=== PATIENT | female | born 1950 | race African-American/Black ===

== ENCOUNTER 2018-11-06 06:03 | Inpatient (IN) ==
[2018-11-05 09:18] LABS: Basophils % 0.5 % (0.0-0.8); Eosinophils % 0.4 % (0.00-10.9); Hemoglobin 10.7 GM/DL (12.0-16.0); Immature Granulocytes % 0.8 %; Immature Granulocytes Absolute 0.06 #; Lymphocytes # 0.7 10*3/uL (1.4-4.0); Lymphocytes % 8.9 % (21.3-54.2); Mean Corpuscular HGB Conc 33.4 GM/DL (32-36); Mean Corpuscular Hemoglobin 30 PG (27-34); Mean Corpuscular Volume 90.9 FL (87-102); Mean Platelet Volume 9.5 FL (9.6-12.0); Monocytes # 0.6 10*3/uL (0.11-0.8); Monocytes % 7.8 % (1.7-12.7); Neutrophils # 6.3 10*3/uL (1.4-7.4); Neutrophils % 81.6 % (38.7-73.9); Platelet Count 313 T/CUMM (130-400); Red Blood Count 3.52 MC/CUMM (3.8-5.5); Red Cell Distribution Width 15.3 % (9.3-17.3); White Blood Count 7.7 T/CUMM (4-12)
[2018-11-05 09:35] LABS: Alanine Aminotransferase 23 U/L (13-56); Albumin 3.7 G/DL (3.4-5.0); Alkaline Phosphatase 92 U/L (45-117); Aspartate Amino Transferase 21 U/L (0-37); Bilirubin,Total < 0.39 MG/DL (0.2-1.0); Blood Urea Nitrogen 11 MG/DL (7-18); Calcium 8.8 MG/DL (8.5-10.1); Glucose 89 MG/DL (74-106); Osmolality,Calculated 274.5 MOS/KG (273-304); Potassium 3.7 MMOL/L (3.5-5.1); Sodium 139 MMOL/L (136-145); Total Protein 7.5 G/DL (6.4-8.3)
[~2018-11-06 06:03] MED LIST: ALVIMOPAN 12 MG CAPSULE PO ONE; DIAZEPAM 5 MG TABLET PO ONE; ERTAPENEM 1,000 MG in SODIUM CHLORIDE 0.9% 100 ML IV ONE; FAMOTIDINE 20 MG TABLET PO ONE
[2018-11-06] MEDS ORDERED: DIAZEPAM 5 MG TABLET ONE (06:32)
[2018-11-06] MEDS ORDERED: ERTAPENEM 1,000 MG VIAL ONE (06:33)
[2018-11-06] MEDS ORDERED: FAMOTIDINE 20 MG TABLET ONE (06:33)
[2018-11-06] MEDS ORDERED: ALVIMOPAN 12 MG CAPSULE ONE (06:33)
[2018-11-06] MEDS ORDERED: TISSUE ADHESIVE 1 EACH APPLICATOR TOP ONE (06:34)
[2018-11-06] MEDS ORDERED: LIDOCAINE 1%/EPI INJ 20 ML VIAL ONE (06:34)
[2018-11-06] MEDS ORDERED: ISOSULFAN BLUE 5 ML VIAL SUBCUT ONE ×2 (06:54→10:24)
[2018-11-06] MEDS: LACTATED RINGERS 1,000 ML IV SCH ×3 (07:00→13:05)
[2018-11-06] MEDS ORDERED: MORPHINE 10 MG/10 ML VIAL ONE (07:06)
[2018-11-06] MEDS ORDERED: BUPIVACAINE SPINAL 0.75% 2 ML AMP SPINAL ONE (07:06)
[2018-11-06] MEDS ORDERED: INDOCYANINE GREEN 25 MG VIAL IV ONE (09:43)
[2018-11-06 12:20] LABS: Apearance,Urine CLEAR (Clear); Bacteria,Urine Occasional /HPF (Few); Bilirubin,Urine Negative (Negative); Blood, Urine Negative (Negative); Glucose,Urine (UA) Negative (Negative); Hyaline Casts,Urine 3 /LPF (0-3); Ketones,Urine Negative (Negative); Nitrite,Urine Negative (Negative); Protein,Urine Negative; RBC,Urine 1 /HPF (0-4); Urine Color Yellow (Yellow); Urine Specific Gravity 1.021 (1.001-1.035); Urine Urobilinogen < 2.0 EU/DL (0.2-1.0); WBC,Urine <1 /HPF (0-6)
[2018-11-06] MEDS ORDERED: GLYCOPYRROLATE 0.4 MG/2 ML VIAL ONE (12:20)
[2018-11-06] MEDS ORDERED: MIDAZOLAM 2 MG/2 ML VIAL ONE (12:20)
[2018-11-06] MEDS ORDERED: PROPOFOL 200 MG/20 ML VIAL IV ONE (12:20)
[2018-11-06] MEDS ORDERED: SEVOFLURANE 1 UNIT/15 MINUTE INH ONE (12:20)
[2018-11-06] MEDS ORDERED: ONDANSETRON 4 MG/2 ML VIAL ONE (12:20)
[2018-11-06] MEDS ORDERED: fentaNYL 100 MCG/2 ML VIAL ONE (12:20)
[2018-11-06] MEDS ORDERED: NEOSTIGMINE 10 MG/10 ML VIAL ONE (12:21)
[2018-11-06] MEDS ORDERED: ROCURONIUM 100 MG/10 ML VIAL IV ONE (12:21)
[2018-11-06] MEDS ORDERED: ACETAMINOPHEN 1,000 MG/100 ML VIAL IV ONE (12:21)
[2018-11-06] MEDS ORDERED: PHENYLEPHRINE 1 MG/10 ML SYRINGE IV ONE (12:21)
[2018-11-06] MEDS ORDERED: LACTATED RINGERS 1,000 ML IV ONE (12:21)
[2018-11-06] MEDS ORDERED: ONDANSETRON 4 MG/2 ML VIAL IV PRN (13:08)
[2018-11-06] MEDS ORDERED: KETOROLAC 10 MG TABLET PO PRN (13:08)
[2018-11-06 14:01] LABS: Hematocrit 27.5 VOL% (35.7-47.0); Hemoglobin 9.2 GM/DL (12.0-16.0)
[2018-11-06] MEDS: DEXTROSE 5% LACTATED RINGERS 1,000 ML IV SCH ×2 (15:03→23:44)
[2018-11-06] MEDS: cefOXitin 2,000 MG in SYRINGE 1 EACH IV SCH ×2 (17:15→23:42)
[2018-11-06] MEDS: ALVIMOPAN 12 MG CAPSULE PO SCH (20:41)
[2018-11-06 21:15] LABS: Hematocrit 26.5 VOL% (35.7-47.0); Hemoglobin 8.9 GM/DL (12.0-16.0)
[2018-11-07] MEDS: cefOXitin 2,000 MG in SYRINGE 1 EACH IV SCH (04:00)
[2018-11-07 05:09] LABS: Basophils % 0.2 % (0.0-0.8); Eosinophils # 0.1 10*3/uL (0.0-0.87); Eosinophils % 1.1 % (0.00-10.9); Hematocrit 24.9 VOL% (35.7-47.0); Hemoglobin 8.4 GM/DL (12.0-16.0); Immature Granulocytes % 0.5 %; Immature Granulocytes Absolute 0.03 #; Lymphocytes # 0.8 10*3/uL (1.4-4.0); Lymphocytes % 14.8 % (21.3-54.2); Mean Corpuscular HGB Conc 33.7 GM/DL (32-36); Mean Corpuscular Hemoglobin 30 PG (27-34); Mean Corpuscular Volume 89.6 FL (87-102); Monocytes # 0.6 10*3/uL (0.11-0.8); Monocytes % 11.3 % (1.7-12.7); Neutrophils % 72.1 % (38.7-73.9); Platelet Count 254 T/CUMM (130-400); Red Blood Count 2.78 MC/CUMM (3.8-5.5); Red Cell Distribution Width 15.1 % (9.3-17.3); White Blood Count 5.6 T/CUMM (4-12)
[2018-11-07 05:34] LABS: Calcium 7.9 MG/DL (8.5-10.1); Osmolality,Calculated 278.3 MOS/KG (273-304); Potassium 3.1 MMOL/L (3.5-5.1)
[2018-11-07] MEDS: DEXTROSE 5% LACTATED RINGERS 1,000 ML IV SCH ×2 (06:12→16:05)
[2018-11-07] MEDS ORDERED: PHENOL 1.4% THROAT SPRAY 177 ML BOTTLE PO PRN (08:32)
[2018-11-07 09:00] LABS: Hematocrit 24.8 VOL% (35.7-47.0); Hemoglobin 8.3 GM/DL (12.0-16.0)
[2018-11-07] MEDS: ALVIMOPAN 12 MG CAPSULE PO SCH ×2 (10:01→20:49)
[2018-11-07] MEDS: PANTOPRAZOLE 40 MG TABLET PO SCH (10:01)
[2018-11-07] MEDS: ENOXAPARIN 40 MG/0.4 ML SYRINGE SUBCUT SCH (10:02)
[2018-11-07] MEDS: POTASSIUM CHLORIDE RIDER 10 MEQ in PREMIX 1 EACH IV PRN ×4 (16:11→20:45)
[2018-11-07 17:19] LABS: Hematocrit 24.7 VOL% (35.7-47.0); Hemoglobin 8.4 GM/DL (12.0-16.0)
[2018-11-07] MEDS: LACTATED RINGERS 1,000 ML IV SCH (19:00)
[2018-11-08] MEDS: DEXTROSE 5% LACTATED RINGERS 1,000 ML IV SCH ×3 (00:47→13:30)
[2018-11-08 00:59] LABS: Hematocrit 25.4 VOL% (35.7-47.0); Hemoglobin 8.7 GM/DL (12.0-16.0)
[2018-11-08 04:53] LABS: Basophils % 0.3 % (0.0-0.8); Eosinophils # 0.1 10*3/uL (0.0-0.87); Eosinophils % 1.1 % (0.00-10.9); Hematocrit 27.2 VOL% (35.7-47.0); Hemoglobin 9.2 GM/DL (12.0-16.0); Immature Granulocytes % 0.4 %; Immature Granulocytes Absolute 0.03 #; Lymphocytes # 0.8 10*3/uL (1.4-4.0); Lymphocytes % 10.5 % (21.3-54.2); Mean Corpuscular HGB Conc 33.8 GM/DL (32-36); Mean Corpuscular Hemoglobin 30 PG (27-34); Mean Corpuscular Volume 89.5 FL (87-102); Mean Platelet Volume 10.5 FL (9.6-12.0); Monocytes # 0.6 10*3/uL (0.11-0.8); Monocytes % 8.8 % (1.7-12.7); Neutrophils # 5.7 10*3/uL (1.4-7.4); Neutrophils % 78.9 % (38.7-73.9); Platelet Count 268 T/CUMM (130-400); Red Blood Count 3.04 MC/CUMM (3.8-5.5); Red Cell Distribution Width 15.4 % (9.3-17.3); White Blood Count 7.2 T/CUMM (4-12)
[2018-11-08 05:03] LABS: Calcium 8.4 MG/DL (8.5-10.1); Potassium 3.5 MMOL/L (3.5-5.1)
[2018-11-08 08:08] LABS: Hematocrit 25.8 VOL% (35.7-47.0); Hemoglobin 8.8 GM/DL (12.0-16.0)
[2018-11-08] MEDS: HYDROmorphone 2 MG/1 ML VIAL IV PRN ×3 (09:03→23:39)
[2018-11-08] MEDS: ENOXAPARIN 40 MG/0.4 ML SYRINGE SUBCUT SCH (09:04)
[2018-11-08] MEDS: PANTOPRAZOLE 40 MG TABLET PO SCH (09:04)
[2018-11-08] MEDS: ALVIMOPAN 12 MG CAPSULE PO SCH ×2 (09:04→21:01)
[2018-11-08] MEDS: LACTATED RINGERS 1,000 ML IV SCH (21:33)
[2018-11-09 05:49] LABS: Basophils % 0.2 % (0.0-0.8); Eosinophils # 0.1 10*3/uL (0.0-0.87); Eosinophils % 1.9 % (0.00-10.9); Hematocrit 28.1 VOL% (35.7-47.0); Hemoglobin 9.2 GM/DL (12.0-16.0); Immature Granulocytes % 0.5 %; Immature Granulocytes Absolute 0.03 #; Lymphocytes # 0.9 10*3/uL (1.4-4.0); Lymphocytes % 16.4 % (21.3-54.2); Mean Corpuscular HGB Conc 32.7 GM/DL (32-36); Mean Corpuscular Hemoglobin 29 PG (27-34); Mean Corpuscular Volume 89.8 FL (87-102); Mean Platelet Volume 9.8 FL (9.6-12.0); Monocytes # 0.5 10*3/uL (0.11-0.8); Monocytes % 8.5 % (1.7-12.7); Neutrophils # 4.1 10*3/uL (1.4-7.4); Neutrophils % 72.5 % (38.7-73.9); Platelet Count 264 T/CUMM (130-400); Red Blood Count 3.13 MC/CUMM (3.8-5.5); Red Cell Distribution Width 15.2 % (9.3-17.3); White Blood Count 5.7 T/CUMM (4-12)
[2018-11-09] MEDS: LACTATED RINGERS 1,000 ML IV SCH (07:16)
[2018-11-09] MEDS: HYDROmorphone 2 MG/1 ML VIAL IV PRN ×2 (09:33→22:10)
[2018-11-09] MEDS: ALVIMOPAN 12 MG CAPSULE PO SCH ×2 (09:36→21:35)
[2018-11-09] MEDS: PANTOPRAZOLE 40 MG TABLET PO SCH (09:37)
[2018-11-09] MEDS: ENOXAPARIN 40 MG/0.4 ML SYRINGE SUBCUT SCH (09:37)
[2018-11-09] MEDS: DEXTROSE 5% LACTATED RINGERS 1,000 ML IV SCH (10:13)
[2018-11-10] MEDS: LACTATED RINGERS 1,000 ML IV SCH (09:16)
[2018-11-10] MEDS: DEXTROSE 5% LACTATED RINGERS 1,000 ML IV SCH (09:16)
[2018-11-10] MEDS: ENOXAPARIN 40 MG/0.4 ML SYRINGE SUBCUT SCH (09:17)
[2018-11-10] MEDS: ALVIMOPAN 12 MG CAPSULE PO SCH (09:17)
[2018-11-10] MEDS: PANTOPRAZOLE 40 MG TABLET PO SCH (09:17)
[2018-11-10 12:11] VITALS: BP 141/77
== END 2018-11-10 12:54 | disposition home or self-care (01) | DRG 330 ==
LOC: N.OR 06:03 → N.SDSINP 06:04 → N.3E 13:08
PROVIDERS: ADMIT Surgery; ATTEND Surgery

== ENCOUNTER 2018-12-21 18:33 | Inpatient (IN) ==
[2018-12-21] MEDS ORDERED: SODIUM CHLORIDE 0.9% 1,000 ML IV STA (18:58)
[2018-12-21 19:25] LABS: Basophils % 0.1 % (0.0-0.8); Hematocrit 33.3 VOL% (35.7-47.0); Hemoglobin 11.2 GM/DL (12.0-16.0); Immature Granulocytes % 0.6 %; Immature Granulocytes Absolute 0.09 #; Lymphocytes # 0.5 10*3/uL (1.4-4.0); Lymphocytes % 3.2 % (21.3-54.2); Mean Corpuscular HGB Conc 33.6 GM/DL (32-36); Mean Corpuscular Volume 85.4 FL (87-102); Mean Platelet Volume 9.6 FL (9.6-12.0); Monocytes % 10.4 % (1.7-12.7); NRBC # 0.02 10*3/uL; Neutrophils % 85.7 % (38.7-73.9); Platelet Count 359 T/CUMM (130-400); Red Cell Distribution Width 18.3 % (9.3-17.3)
[2018-12-21 19:31] LABS: Apearance,Urine CLOUDY (Clear); Bacteria,Urine Few /HPF (Few); Bilirubin,Urine Negative (Negative); Blood, Urine Large mg/dL (Negative); Glucose,Urine (UA) Negative (Negative); Ketones,Urine 20 mg/dL (Negative); Mucus,Urine Occasional /LPF (Occasional); Nitrite,Urine Negative (Negative); Protein,Urine 30 MG/DL; Squamous Epithelial Cell,Urine Occasional /HPF (0-10); Urine Color Yellow (Yellow); Urine Specific Gravity 1.013 (1.001-1.035); Urine Urobilinogen < 2.0 EU/DL (0.2-1.0); WBC,Urine 3 /HPF (0-6)
[2018-12-21 19:33] LABS: INR 0.9; PT Patient Result 10.3 SECS
[2018-12-21 19:43] LABS: Lymphocytes 4 % (20-55); Segmented Neutrophils 91 % (50-85); Total Cells Counted 100
[2018-12-21 19:44] LABS: Anisocytosis 1+; Hypochromasia Slight; Platelet Estimate Adequate; Target Cells Few
[2018-12-21 19:55] LABS: Albumin 4.2 G/DL (3.4-5.0); Bilirubin,Total 0.6 MG/DL (0.2-1.0); CKMB % 1.5 %; Osmolality,Calculated 313.6 MOS/KG (273-304); Total Protein 8.8 G/DL (6.4-8.3); Troponin I 0.089 NG/ML (0.00-0.045)
[2018-12-21 20:07] LABS: Barbiturates Screen,Urine Negative (Negative); Benzodiazepines Screen,Urine Negative (Negative); Cannabinoid Screen,Urine Negative (Negative); Opiate Screen,Urine Positive (Negative); Phencyclidine Screen,Urine Negative (Negative)
[2018-12-21] MEDS ORDERED: NICOTINE 21 MG/24 HR PATCH TRANSDERM PRN (21:37)
[2018-12-21] MEDS ORDERED: diphenhydrAMINE CAP 25 MG CAPSULE PO PRN (21:37)
[2018-12-21] MEDS ORDERED: ACETAMINOPHEN 325 MG TABLET PO PRN (21:37)
[2018-12-22] MEDS: SODIUM CHLORIDE 0.9% 1,000 ML IV SCH ×2 (02:00→10:07)
[2018-12-22] MEDS: MORPHINE 4 MG/1 ML VIAL IV PRN (02:05)
[2018-12-22 02:51] LABS: Albumin 3.6 G/DL (3.4-5.0); Basophils % 0.2 % (0.0-0.8); Hematocrit 30.9 VOL% (35.7-47.0); Hemoglobin 10.1 GM/DL (12.0-16.0); Immature Granulocytes % 0.6 %; Immature Granulocytes Absolute 0.06 #; Lymphocytes # 0.3 10*3/uL (1.4-4.0); Lymphocytes % 3.2 % (21.3-54.2); Mean Corpuscular HGB Conc 32.7 GM/DL (32-36); Mean Corpuscular Volume 85.6 FL (87-102); Mean Platelet Volume 9.9 FL (9.6-12.0); Monocytes % 9.9 % (1.7-12.7); Neutrophils % 86.1 % (38.7-73.9); Osmolality,Calculated 317.7 MOS/KG (273-304); Platelet Count 352 T/CUMM (130-400); Red Blood Count 3.61 MC/CUMM (3.8-5.5); Red Cell Distribution Width 18.1 % (9.3-17.3); Total Protein 7.6 G/DL (6.4-8.3); White Blood Count 10.5 T/CUMM (4-12)
[2018-12-22 03:21] LABS: CKMB % 1.1 %
[2018-12-22 03:23] LABS: Troponin I 0.099 NG/ML (0.00-0.045)
[2018-12-22] MEDS ORDERED: LORazepam 2 MG/1 ML VIAL IV ONE (03:34)
[2018-12-22 05:29] LABS: Band Neutrophils 3 % (0-10); Lymphocytes 5 % (20-55); Platelet Estimate Normal; Segmented Neutrophils 85 % (50-85); Total Cells Counted 100
[2018-12-22] MEDS ORDERED: METOPROLOL TARTRATE 5 MG/5 ML VIAL IV ONE ×2 (09:52→09:56)
[2018-12-22] MEDS: PANTOPRAZOLE 40 MG TABLET PO SCH ×3 (10:04→10:58)
[2018-12-22] MEDS: hydroCHLOROthiazide 25 MG TABLET PO SCH ×2 (10:47→10:59)
[2018-12-22] MEDS: amLODIPine 10 MG TABLET PO SCH ×2 (10:47→10:58)
[2018-12-22] MEDS: LISINOPRIL 20 MG TABLET PO SCH ×2 (10:47→10:58)
[2018-12-22] MEDS: DEXTROSE 5% 1,000 ML IV SCH ×2 (12:25→22:29)
[2018-12-23 06:57] LABS: Basophils % 0.3 % (0.0-0.8); Eosinophils # 0.1 10*3/uL (0.0-0.87); Eosinophils % 0.8 % (0.00-10.9); Hemoglobin 9.2 GM/DL (12.0-16.0); Mean Corpuscular HGB Conc 34.1 GM/DL (32-36); Mean Corpuscular Volume 83.9 FL (87-102); Mean Platelet Volume 9.9 FL (9.6-12.0); Monocytes % 11.7 % (1.7-12.7); NRBC # 0.03 10*3/uL; Neutrophils % 76.2 % (38.7-73.9); Platelet Count 297 T/CUMM (130-400); Red Blood Count 3.22 MC/CUMM (3.8-5.5); Red Cell Distribution Width 17.9 % (9.3-17.3); White Blood Count 9.7 T/CUMM (4-12)
[2018-12-23 07:37] LABS: Bilirubin,Direct 0.16 MG/DL (0.0-0.20); Bilirubin,Indirect 0.7 MG/DL (0.0-1.0); Bilirubin,Total 0.9 MG/DL (0.2-1.0); Total Protein 6.4 G/DL (6.4-8.3)
[2018-12-23 08:43] LABS: Calcium 9.4 MG/DL (8.5-10.1); Osmolality,Calculated 286.1 MOS/KG (273-304)
[2018-12-23] MEDS: amLODIPine 10 MG TABLET PO SCH (08:48)
[2018-12-23] MEDS: PANTOPRAZOLE 40 MG TABLET PO SCH (08:49)
[2018-12-23] MEDS: hydroCHLOROthiazide 25 MG TABLET PO SCH (08:49)
[2018-12-23] MEDS: DEXTROSE 5% 1,000 ML IV SCH ×2 (08:49→21:18)
[2018-12-23] MEDS: LISINOPRIL 20 MG TABLET PO SCH (08:49)
[2018-12-23] MEDS: MORPHINE 4 MG/1 ML VIAL IV PRN ×2 (16:27→21:15)
[2018-12-23] MEDS: SILVER SULFADIAZINE 1% CREAM 25 GM TUBE TOP SCH (16:28)
[2018-12-24 06:56] LABS: Basophils % 0.4 % (0.0-0.8); Eosinophils # 0.1 10*3/uL (0.0-0.87); Eosinophils % 1.3 % (0.00-10.9); Hematocrit 28.2 VOL% (35.7-47.0); Hemoglobin 9.4 GM/DL (12.0-16.0); Immature Granulocytes % 1.1 %; Immature Granulocytes Absolute 0.11 #; Lymphocytes # 0.8 10*3/uL (1.4-4.0); Lymphocytes % 8.2 % (21.3-54.2); Mean Corpuscular HGB Conc 33.3 GM/DL (32-36); Mean Corpuscular Volume 84.4 FL (87-102); Monocytes % 10.5 % (1.7-12.7); NRBC # 0.02 10*3/uL; Neutrophils % 78.5 % (38.7-73.9); Platelet Count 308 T/CUMM (130-400); Red Blood Count 3.34 MC/CUMM (3.8-5.5); Red Cell Distribution Width 17.9 % (9.3-17.3); White Blood Count 10.1 T/CUMM (4-12)
[2018-12-24 07:27] LABS: Calcium 9.4 MG/DL (8.5-10.1); Osmolality,Calculated 277.4 MOS/KG (273-304)
[2018-12-24] MEDS: DEXTROSE 5% 1,000 ML IV SCH ×2 (08:15→17:45)
[2018-12-24] MEDS: MORPHINE 4 MG/1 ML VIAL IV PRN ×3 (09:10→22:52)
[2018-12-24] MEDS: PANTOPRAZOLE 40 MG TABLET PO SCH (09:11)
[2018-12-24] MEDS: SILVER SULFADIAZINE 1% CREAM 25 GM TUBE TOP SCH (09:11)
[2018-12-24] MEDS: LISINOPRIL 20 MG TABLET PO SCH (09:11)
[2018-12-24] MEDS: hydroCHLOROthiazide 25 MG TABLET PO SCH (09:11)
[2018-12-24] MEDS: amLODIPine 10 MG TABLET PO SCH (09:11)
[2018-12-25] MEDS: DEXTROSE 5% 1,000 ML IV SCH ×3 (04:06→15:56)
[2018-12-25 07:10] LABS: Basophils % 0.3 % (0.0-0.8); Eosinophils # 0.2 10*3/uL (0.0-0.87); Eosinophils % 1.9 % (0.00-10.9); Hematocrit 31.2 VOL% (35.7-47.0); Hemoglobin 10.5 GM/DL (12.0-16.0); Immature Granulocytes % 1.9 %; Immature Granulocytes Absolute 0.17 #; Lymphocytes # 0.9 10*3/uL (1.4-4.0); Lymphocytes % 10.3 % (21.3-54.2); Mean Corpuscular HGB Conc 33.7 GM/DL (32-36); Mean Corpuscular Volume 85.7 FL (87-102); Mean Platelet Volume 9.6 FL (9.6-12.0); Monocytes % 10.4 % (1.7-12.7); Neutrophils % 75.2 % (38.7-73.9); Platelet Count 306 T/CUMM (130-400); Red Blood Count 3.64 MC/CUMM (3.8-5.5); Red Cell Distribution Width 18.3 % (9.3-17.3); White Blood Count 8.9 T/CUMM (4-12)
[2018-12-25 07:44] LABS: Calcium 9.9 MG/DL (8.5-10.1); Osmolality,Calculated 275.7 MOS/KG (273-304)
[2018-12-25] MEDS: ONDANSETRON 4 MG/2 ML VIAL IV PRN (07:54)
[2018-12-25] MEDS: predniSONE 5 MG TABLET PO SCH (11:12)
[2018-12-25] MEDS: hydroCHLOROthiazide 25 MG TABLET PO SCH (11:12)
[2018-12-25] MEDS: amLODIPine 10 MG TABLET PO SCH (11:12)
[2018-12-25] MEDS: PANTOPRAZOLE 40 MG TABLET PO SCH (11:12)
[2018-12-25] MEDS: SILVER SULFADIAZINE 1% CREAM 25 GM TUBE TOP SCH (11:13)
[2018-12-25] MEDS: LISINOPRIL 20 MG TABLET PO SCH (11:13)
[2018-12-26] MEDS: DEXTROSE 5% 1,000 ML IV SCH ×3 (01:59→18:17)
[2018-12-26 05:56] LABS: Basophils % 0.3 % (0.0-0.8); Eosinophils # 0.2 10*3/uL (0.0-0.87); Eosinophils % 1.7 % (0.00-10.9); Hematocrit 26.8 VOL% (35.7-47.0); Hemoglobin 9.1 GM/DL (12.0-16.0); Lymphocytes # 0.9 10*3/uL (1.4-4.0); Lymphocytes % 9.4 % (21.3-54.2); Mean Corpuscular Volume 85.4 FL (87-102); Mean Platelet Volume 10.7 FL (9.6-12.0); Monocytes % 9.9 % (1.7-12.7); Neutrophils % 76.7 % (38.7-73.9); Platelet Count 310 T/CUMM (130-400); Red Blood Count 3.14 MC/CUMM (3.8-5.5); Red Cell Distribution Width 18.4 % (9.3-17.3)
[2018-12-26 06:14] LABS: Calcium 9.3 MG/DL (8.5-10.1); Osmolality,Calculated 274.8 MOS/KG (273-304)
[2018-12-26] MEDS: PANTOPRAZOLE 40 MG TABLET PO SCH (09:47)
[2018-12-26] MEDS: amLODIPine 10 MG TABLET PO SCH (09:47)
[2018-12-26] MEDS: hydroCHLOROthiazide 25 MG TABLET PO SCH (09:47)
[2018-12-26] MEDS: predniSONE 5 MG TABLET PO SCH (09:47)
[2018-12-26] MEDS: LISINOPRIL 20 MG TABLET PO SCH (09:47)
[2018-12-26] MEDS: SILVER SULFADIAZINE 1% CREAM 25 GM TUBE TOP SCH (09:48)
[2018-12-26] MEDS: MORPHINE 4 MG/1 ML VIAL IV PRN ×2 (11:51→21:47)
[2018-12-26] MEDS ORDERED: POTASSIUM CHLORIDE 20 MEQ TABLET PO PRN (16:44)
[2018-12-26] MEDS: ONDANSETRON 4 MG/2 ML VIAL IV PRN (18:18)
[2018-12-27] MEDS: DEXTROSE 5% 1,000 ML IV SCH ×3 (04:31→22:00)
[2018-12-27 05:40] LABS: Osmolality,Calculated 279.5 MOS/KG (273-304)
[2018-12-27] MEDS: PANTOPRAZOLE 40 MG TABLET PO SCH (10:45)
[2018-12-27] MEDS: predniSONE 5 MG TABLET PO SCH (10:45)
[2018-12-27] MEDS: hydroCHLOROthiazide 25 MG TABLET PO SCH (10:45)
[2018-12-27] MEDS: amLODIPine 10 MG TABLET PO SCH (10:45)
[2018-12-27] MEDS: SILVER SULFADIAZINE 1% CREAM 25 GM TUBE TOP SCH (10:45)
[2018-12-27] MEDS: LISINOPRIL 20 MG TABLET PO SCH (10:45)
[2018-12-27] MEDS: MORPHINE 4 MG/1 ML VIAL IV PRN (17:24)
[2018-12-27] MEDS: ENOXAPARIN 40 MG/0.4 ML SYRINGE SUBCUT SCH (17:25)
[2018-12-28 07:16] LABS: Basophils % 0.4 % (0.0-0.8); Eosinophils # 0.2 10*3/uL (0.0-0.87); Hematocrit 28.7 VOL% (35.7-47.0); Hemoglobin 9.4 GM/DL (12.0-16.0); Immature Granulocytes % 2.5 %; Immature Granulocytes Absolute 0.25 #; Lymphocytes % 9.9 % (21.3-54.2); Mean Corpuscular HGB Conc 32.8 GM/DL (32-36); Mean Corpuscular Volume 86.4 FL (87-102); Mean Platelet Volume 10.8 FL (9.6-12.0); Monocytes % 8.9 % (1.7-12.7); Neutrophils % 76.3 % (38.7-73.9); Platelet Count 388 T/CUMM (130-400); Red Blood Count 3.32 MC/CUMM (3.8-5.5); Red Cell Distribution Width 18.2 % (9.3-17.3); White Blood Count 10.1 T/CUMM (4-12)
[2018-12-28] MEDS: DEXTROSE 5% 1,000 ML IV SCH (07:20)
[2018-12-28 07:31] LABS: Calcium 9.6 MG/DL (8.5-10.1); Osmolality,Calculated 277.8 MOS/KG (273-304)
[2018-12-28] MEDS: MORPHINE 4 MG/1 ML VIAL IV PRN (09:12)
[2018-12-28] MEDS: predniSONE 5 MG TABLET PO SCH (09:12)
[2018-12-28] MEDS: amLODIPine 10 MG TABLET PO SCH (09:12)
[2018-12-28] MEDS: LISINOPRIL 20 MG TABLET PO SCH (09:12)
[2018-12-28] MEDS: hydroCHLOROthiazide 25 MG TABLET PO SCH (09:12)
[2018-12-28] MEDS: PANTOPRAZOLE 40 MG TABLET PO SCH (09:12)
[2018-12-28] MEDS: SILVER SULFADIAZINE 1% CREAM 25 GM TUBE TOP SCH (09:40)
[2018-12-28] MEDS: ENOXAPARIN 40 MG/0.4 ML SYRINGE SUBCUT SCH (17:20)
[2018-12-29] MEDS: hydroCHLOROthiazide 25 MG TABLET PO SCH (08:46)
[2018-12-29] MEDS: LISINOPRIL 20 MG TABLET PO SCH (08:47)
[2018-12-29] MEDS: predniSONE 5 MG TABLET PO SCH (08:48)
[2018-12-29] MEDS: PANTOPRAZOLE 40 MG TABLET PO SCH (08:48)
[2018-12-29] MEDS: amLODIPine 10 MG TABLET PO SCH (08:48)
[2018-12-29] MEDS: ONDANSETRON 4 MG/2 ML VIAL IV PRN (08:48)
[2018-12-29] MEDS: SILVER SULFADIAZINE 1% CREAM 25 GM TUBE TOP SCH (08:52)
[2018-12-29] MEDS: ENOXAPARIN 40 MG/0.4 ML SYRINGE SUBCUT SCH (17:32)
[2018-12-30 06:27] LABS: Troponin I < 0.015 NG/ML (0.00-0.045)
[2018-12-30 06:29] LABS: Calcium 9.7 MG/DL (8.5-10.1); Osmolality,Calculated 275.7 MOS/KG (273-304); Thyroid Stimulating Hormone 6.12 uIU/ml (0.358-3.74)
[2018-12-30] MEDS: LISINOPRIL 20 MG TABLET PO SCH (08:34)
[2018-12-30] MEDS: predniSONE 5 MG TABLET PO SCH (08:35)
[2018-12-30] MEDS: PANTOPRAZOLE 40 MG TABLET PO SCH (08:35)
[2018-12-30] MEDS: hydroCHLOROthiazide 25 MG TABLET PO SCH (08:35)
[2018-12-30] MEDS: amLODIPine 10 MG TABLET PO SCH (08:35)
[2018-12-30] MEDS: SILVER SULFADIAZINE 1% CREAM 25 GM TUBE TOP SCH (08:36)
[2018-12-30] MEDS: ONDANSETRON 4 MG/2 ML VIAL IV PRN (08:36)
[2018-12-30 11:38] VITALS: BP 117/70
[2018-12-30 16:18] LABS: Folate 6.5 NG/ML (5.4-24.0)
== END 2018-12-30 14:50 | disposition home health service (06) | DRG 94 ==
LOC: EDBD → EDUNIT# → N.EDINP 18:33 → N.ED 18:33 → SUATTDRO 21:37 → N.5E 22:33
PROVIDERS: ADMIT Internal Medicine; ATTEND Internal Medicine

== ENCOUNTER 2019-01-01 23:34 | Inpatient (IN) ==
[2019-01-01] MEDS ORDERED: NALOXONE 0.4 MG/ML VIAL IV STA ×2 (23:37→23:57)
[2019-01-01] MEDS ORDERED: NALOXONE 0.4 MG/ML VIAL ONE (23:47)
[2019-01-01] MEDS ORDERED: SODIUM CHLORIDE 0.9% 500 ML IV STA (23:57)
[2019-01-01] MEDS ORDERED: ALBUTEROL NEB SOLN 5 MG/ML 20 ML/BOTTLE CONT NEB STA (23:57)
[2019-01-02] MEDS ORDERED: SODIUM CHLORIDE 0.9% 1,000 ML IV STA
[2019-01-02 00:53] LABS: Basophils # 0.1 10*3/uL (0.0-0.2); Basophils % 0.3 % (0.0-0.8); Eosinophils # 0.1 10*3/uL (0.0-0.87); Eosinophils % 0.3 % (0.00-10.9); Hematocrit 24.1 VOL% (35.7-47.0); Hemoglobin 8.2 GM/DL (12.0-16.0); Immature Granulocytes % 1.4 %; Immature Granulocytes Absolute 0.25 #; Lymphocytes # 0.7 10*3/uL (1.4-4.0); Mean Corpuscular Volume 85.2 FL (87-102); Monocytes % 6.6 % (1.7-12.7); Neutrophils % 87.4 % (38.7-73.9); Platelet Count 442 T/CUMM (130-400); Red Blood Count 2.83 MC/CUMM (3.8-5.5); Red Cell Distribution Width 17.9 % (9.3-17.3); White Blood Count 18.3 T/CUMM (4-12)
[2019-01-02 00:59] LABS: INR 0.9; Partial Thromboplastin Time 26.8 SECS (0-40)
[2019-01-02 01:25] LABS: Lymphocytes 4 % (20-55); Segmented Neutrophils 90 % (50-85); Total Cells Counted 100
[2019-01-02 01:26] LABS: Hypochromasia 1+; Platelet Estimate Increased; Target Cells Few
[2019-01-02 01:31] LABS: Alanine Aminotransferase 20 U/L (13-56); Albumin 3.3 G/DL (3.4-5.0); Alkaline Phosphatase 78 U/L (45-117); Aspartate Amino Transferase 36 U/L (0-37); Bilirubin,Total < 0.39 MG/DL (0.2-1.0); Blood Urea Nitrogen 47 MG/DL (7-18); CKMB % 2.5 %; Glucose 113 MG/DL (74-106); Osmolality,Calculated 285.8 MOS/KG (273-304); Troponin I < 0.015 NG/ML (0.00-0.045)
[2019-01-02 02:10] LABS: Apearance,Urine CLOUDY (Clear); Bacteria,Urine Few /HPF (Few); Bilirubin,Urine Negative (Negative); Blood, Urine Large mg/dL (Negative); Glucose,Urine (UA) Negative (Negative); Hyaline Casts,Urine 11 /LPF (0-3); Ketones,Urine Negative (Negative); Mucus,Urine Occasional /LPF (Occasional); Nitrite,Urine Negative (Negative); Protein,Urine 30 MG/DL; RBC,Urine 30 /HPF (0-4); Squamous Epithelial Cell,Urine Occasional /HPF (0-10); Urine Color Yellow (Yellow); Urine Specific Gravity 1.018 (1.001-1.035); Urine Urobilinogen < 2.0 EU/DL (0.2-1.0); WBC,Urine 37 /HPF (0-6)
[2019-01-02] MEDS ORDERED: SODIUM CHLORIDE 0.9% 500 ML IV STA (02:29)
[2019-01-02] MEDS ORDERED: BISACODYL 5 MG TABLET PO PRN (02:37)
[2019-01-02] MEDS ORDERED: diphenhydrAMINE CAP 25 MG CAPSULE PO PRN (02:37)
[2019-01-02] MEDS ORDERED: ONDANSETRON 4 MG/2 ML VIAL IV PRN (02:37)
[2019-01-02] MEDS ORDERED: NICOTINE 21 MG/24 HR PATCH TRANSDERM PRN (02:37)
[2019-01-02] MEDS ORDERED: SODIUM CHLORIDE 0.9% 1,000 ML IV SCH (03:00)
[2019-01-02 03:55] LABS: Barbiturates Screen,Urine Negative (Negative); Benzodiazepines Screen,Urine Negative (Negative); Cannabinoid Screen,Urine Negative (Negative); Opiate Screen,Urine Positive (Negative); Phencyclidine Screen,Urine Negative (Negative)
[2019-01-02] MEDS ORDERED: LEVOFLOXACIN INJ 150 ML IV ONE (04:26)
[2019-01-02] MEDS: LEVOFLOXACIN INJ 750 MG in PREMIX 1 EACH IV SCH (04:34)
[2019-01-02] MEDS: SODIUM CHLORIDE 0.9% 1,000 ML IV SCH ×3 (04:51→23:42)
[2019-01-02 06:10] LABS: Albumin 2.9 G/DL (3.4-5.0); Bilirubin,Total 0.7 MG/DL (0.2-1.0); Calcium 8.4 MG/DL (8.5-10.1); Osmolality,Calculated 287.5 MOS/KG (273-304); Total Protein 6.2 G/DL (6.4-8.3)
[2019-01-02] MEDS: PANTOPRAZOLE 40 MG TABLET PO SCH (09:47)
[2019-01-02] MEDS: MEROPENEM 500 MG in SODIUM CHLORIDE 0.9% 100 ML IV SCH ×2 (13:00→23:43)
[2019-01-02] MEDS: MEMANTINE 5 MG TABLET PO SCH (21:01)
[2019-01-03] MEDS: MEMANTINE 5 MG TABLET PO SCH ×2 (08:40→22:08)
[2019-01-03] MEDS: PANTOPRAZOLE 40 MG TABLET PO SCH (08:41)
[2019-01-03] MEDS: SODIUM CHLORIDE 0.9% 1,000 ML IV SCH ×2 (08:41→17:40)
[2019-01-03] MEDS: MEROPENEM 500 MG in SODIUM CHLORIDE 0.9% 100 ML IV SCH ×2 (12:09→22:13)
[2019-01-04] MEDS: LEVOFLOXACIN INJ 750 MG in PREMIX 1 EACH IV SCH (04:08)
[2019-01-04 05:29] LABS: Calcium 8.6 MG/DL (8.5-10.1)
[2019-01-04 05:32] LABS: Basophils % 0.5 % (0.0-0.8); Eosinophils # 0.1 10*3/uL (0.0-0.87); Eosinophils % 0.8 % (0.00-10.9); Hematocrit 20.8 VOL% (35.7-47.0); Hemoglobin 7.1 GM/DL (12.0-16.0); Immature Granulocytes % 1.2 %; Immature Granulocytes Absolute 0.09 #; Mean Corpuscular HGB Conc 34.1 GM/DL (32-36); Mean Corpuscular Volume 84.2 FL (87-102); Mean Platelet Volume 10.2 FL (9.6-12.0); Monocytes % 8.9 % (1.7-12.7); Neutrophils % 75.6 % (38.7-73.9); Platelet Count 413 T/CUMM (130-400); Red Blood Count 2.47 MC/CUMM (3.8-5.5); Red Cell Distribution Width 17.8 % (9.3-17.3); White Blood Count 7.5 T/CUMM (4-12)
[2019-01-04] MEDS: SODIUM CHLORIDE 0.9% 1,000 ML IV SCH ×2 (05:55→12:59)
[2019-01-04] MEDS ORDERED: SODIUM CHLORIDE 0.9% 1,000 ML IV PRN (07:22)
[2019-01-04] MEDS ORDERED: FUROSEMIDE 20 MG/2 ML VIAL IV SCH (07:30)
[2019-01-04] MEDS ORDERED: diphenhydrAMINE 50 MG/1 ML VIAL IV SCH (07:30)
[2019-01-04] MEDS: PANTOPRAZOLE 40 MG TABLET PO SCH (08:53)
[2019-01-04] MEDS: MEMANTINE 5 MG TABLET PO SCH ×2 (08:53→21:44)
[2019-01-04] MEDS: ACETAMINOPHEN 325 MG TABLET PO PRN ×2 (10:57→18:03)
[2019-01-04] MEDS: MEROPENEM 1,000 MG in SODIUM CHLORIDE 0.9% 100 ML IV SCH ×2 (11:17→18:05)
[2019-01-04 18:52] LABS: Hematocrit 32.2 VOL% (35.7-47.0)
[2019-01-04 18:54] LABS: Hemoglobin 10.8 GM/DL (12.0-16.0)
[2019-01-05] MEDS: MEROPENEM 1,000 MG in SODIUM CHLORIDE 0.9% 100 ML IV SCH (03:20)
[2019-01-05] MEDS: ACETAMINOPHEN 325 MG TABLET PO PRN ×2 (04:50→10:24)
[2019-01-05] MEDS: SODIUM CHLORIDE 0.9% 1,000 ML IV SCH (04:53)
[2019-01-05 05:32] LABS: Basophils # 0.1 10*3/uL (0.0-0.2); Basophils % 0.7 % (0.0-0.8); Eosinophils # 0.1 10*3/uL (0.0-0.87); Eosinophils % 0.7 % (0.00-10.9); Hematocrit 33.1 VOL% (35.7-47.0); Hemoglobin 11.2 GM/DL (12.0-16.0); Immature Granulocytes Absolute 0.23 #; Lymphocytes # 0.8 10*3/uL (1.4-4.0); Lymphocytes % 10.7 % (21.3-54.2); Mean Corpuscular HGB Conc 33.8 GM/DL (32-36); Mean Corpuscular Volume 86.4 FL (87-102); Monocytes % 8.5 % (1.7-12.7); NRBC # 0.03 10*3/uL; Neutrophils % 76.4 % (38.7-73.9); Platelet Count 397 T/CUMM (130-400); Red Blood Count 3.83 MC/CUMM (3.8-5.5); Red Cell Distribution Width 16.7 % (9.3-17.3); White Blood Count 7.6 T/CUMM (4-12)
[2019-01-05 05:54] LABS: Albumin 2.7 G/DL (3.4-5.0); Bilirubin,Total 0.8 MG/DL (0.2-1.0); Osmolality,Calculated 278.1 MOS/KG (273-304)
[2019-01-05 08:12] VITALS: BP 158/85
[2019-01-05] MEDS: MEMANTINE 5 MG TABLET PO SCH (08:56)
[2019-01-05] MEDS: PANTOPRAZOLE 40 MG TABLET PO SCH (08:56)
[2019-01-05] MEDS ORDERED: LEVOFLOXACIN INJ 750 MG in PREMIX 1 EACH IV SCH (09:00)
[2019-01-05] MEDS ORDERED: LEVOFLOXACIN 750 MG TABLET PO SCH (09:00)
== END 2019-01-05 12:55 | disposition home health service (06) | DRG 917 ==
LOC: EDUNIT# → N.ED 23:34 → N.EDINP 23:34 → N.2E 01-02 03:27
PROVIDERS: ADMIT Internal Medicine; ATTEND Internal Medicine